=== PATIENT | male | born 1975 | race Caucasian/White ===

== ENCOUNTER 2020-04-15 14:34 | Outpatient (CLI) | payer BC, SELFPAY ==
--- NOTE | 2020-04-15 14:41 | USCV_ITS ---
Audie Estes Age: 44 Gender: M : 1975 Exam Date: 04/15/2020 14:55 Ordering Phys: Nataliya Harrison MD Technologist: Kirstie Estes Exam Location: [facility] Indication: SYNCOPE BP: 121 / 61 HR: 69 Rhythm: Sinus Technical Quality: Adequate MEASUREMENTS (Male / Female) Normal Values 2D ECHO LV Diastolic Diameter PLAX 4.2 cm 4.2 - 5.9 / 3.9 - 5.3 cm LV Systolic Diameter PLAX 3.0 cm LV Chamber Size 3.4 cm IVS Diastolic Thickness 0.9 cm 0.6 - 1.0 / 0.6 - 0.9 cm IVS Systolic Thickness 1.0 cm LVPW Diastolic Thickness 1.5 cm 0.6 - 1.0 / 0.6 - 0.9 cm LVPW Systolic Thickness 2.2 cm RV Chamber Size 3.1 cm LVOT Diameter 2.0 cm LV Ejection Fraction 2D Teich 57.2 % LV Ejection Fraction MOD 2C 57.5 % LV Ejection Fraction 2C AL 57.6 % LA Diameter 3.1 cm LA Width 2.8 cm LA Height 4.4 cm RA Width 2.8 cm RA Height 3.7 cm Aorta at Sinotubular Diameter 2.2 cm M-MODE LV Diastolic Diameter MM 4.1 cm 4.2 - 5.9 / 3.9 - 5.3 cm LV Systolic Diameter MM 2.4 cm LV Ejection Fraction MM Teich 71.6 % IVS Diastolic Thickness MM 0.8 cm 0.6 - 1.0 / 0.6 - 0.9 cm IVS Systolic Thickness MM 1.2 cm LVPW Diastolic Thickness MM 1.2 cm 0.6 - 1.0 / 0.6 - 0.9 cm LVPW Systolic Thickness MM 1.4 cm Aortic Annulus Diameter 3.5 cm LA Ao Ratio MM 1.0 MV E Point Septal Separation 0.5 cm DOPPLER AV Peak Velocity 131.0 cm/s LVOT Peak Velocity 124.0 cm/s AV Area Cont Eq vti 2.7 cm squared AV Area Cont Eq pk 3.0 cm squared MV Area PHT 3.3 cm squared Mitral E to A Ratio 1.6 MV E' Velocity 44.0 cm/s Mitral E to MV E' Ratio 4.4 Mitral E to LV E' Lateral Ratio 3.9 Mitral E to LV E' Septal Ratio 5.0 TR Peak Velocity 242.0 cm/s TR Peak Gradient 23.4 mmHg TV Peak E Velocity 86.0 cm/s Right Atrial Pressure 3.0 mmHg Pulmonary Artery Systolic Pressu 26.4 mmHg PV Peak Velocity 92.0 cm/s RV Acceleration Time 0.2 s RV Ejection Time 0.4 s RV AcT/ET 0.6 FINDINGS Left Ventricle Normal left ventricular size, systolic function and wall thickness, with no regional wall motion abnormalities. Left ventricular ejection fraction is estimated at 60 %. Normal diastolic function. Right Ventricle Normal right ventricular size and systolic function. Right ventricular systolic pressure 26.4 mmHg. Right Atrium Normal right atrial size. Left Atrium Normal left atrial size. Mitral Valve Structurally normal mitral valve. No mitral valve stenosis. Trace mitral valve regurgitation. Aortic Valve Structurally normal trileaflet aortic valve. No aortic valve stenosis. No aortic valve regurgitation. Tricuspid Valve Structurally normal tricuspid valve. Trace tricuspid valve regurgitation. Pulmonic Valve Pulmonic valve not well visualized. Pericardium No pericardial effusion. Aorta Normal size aortic root and proximal ascending aorta. CONCLUSIONS 1. Normal left ventricular size, systolic function and wall thickness, with no regional wall motion abnormalities. Left ventricular ejection fraction is estimated at 60 %. Normal diastolic function. 2. Normal right ventricular size and systolic function. 3. No significant valvular abnormalities. 4. Normal pulmonary artery pressure. 5. No prior similar studies to compare. Elis Riley MD (Electronically Signed) Final Date: 18 April 2020 19:26 S
== END 2020-04-15 14:35 | disposition home or self-care (01) ==
PROVIDERS: PCP Internal Medicine; Visit Provider Internal Medicine
DX: R55 Syncope and collapse (principal)
CPT/HCPCS: 93306

== ENCOUNTER 2022-03-15 16:04 | Outpatient (CLI) | payer BC, SELFPAY ==
--- NOTE | 2022-03-15 16:14 | XR_ITS ---
WS: [id number] Right elbow, 3 views, 03/15/2022 Clinical Data: ELBOW PAIN, RIGHT Comparison: None. Findings: No fractures or dislocations are seen. The radial head is normal. The soft tissues are unremarkable. XR/XR elbow RT min 3V* [id number] Impression: Negative right elbow.
== END 2022-03-15 16:05 | disposition home or self-care (01) ==
LOC: RAD 16:08
PROVIDERS: PCP Internal Medicine; Visit Provider Nurse Practitioner Family
DX: M25.521 Pain in right elbow (principal)
CPT/HCPCS: 73080

== ENCOUNTER → 2022-06-12 14:18 | Outpatient (BNVA) | payer BC, SELFPAY | PROVIDERS: PCP Family Medicine; Visit Provider Family Medicine | DX: R53.82 Chronic fatigue, unspecified (principal); R51.9 Headache, unspecified; G89.29 Other chronic pain; R55 Syncope and collapse; Z76.89 Persons encountering health services in other specified circumstances | CPT/HCPCS: 80053; 80061; 83036; 84403; 84439; 84443; 85025; 85651; 86140; G0103 ==

== ENCOUNTER 2022-08-22 14:34 | Outpatient (CLI) | payer BC, SELFPAY ==
--- NOTE | 2022-08-22 15:30 | CT_ITS ---
WS: [id number] CTA HEAD AND NECK TECHNIQUE: Contrast enhanced CTA of the head and neck with coronal and sagittal reformatted images an d maximum intensity projection (MIP) images. NASCET criteria utilized. CLINICAL INFORMATION: Dizziness, Pre-syncope, chronic migraine COMPARISON: 2019 DLP: 1236.[address] scans at [facility] use at least one of these dose optimization techniques: automated e xposure control; mA and/or kV adjustment per patient size (includes targeted exams where dose is matc hed to clinical indication); or iterative reconstruction. FINDINGS: No evidence of intracranial hemorrhage or mass effect. Ventricular system and basal cistern s are patent. No hydrocephalus. Paranasal sinuses and mastoid air cells well aerated. Normal posterio r nasopharynx. RIGHT: RIGHT common carotid artery is patent. No significant RIGHT ICA stenosis. RIGHT ICA is patent to the skull base. LEFT: LEFT common carotid artery is patent. No significant LEFT ICA stenosis. LEFT ICA is patent to t he skull base. Tortuous LEFT cervical ICA at the skull base. Codominant and patent vertebral arteries bilaterally. Vertebral arteries are patent to the basilar ju nction. Normal vascularity to the [employer] territory bilaterally. Tortuous cavernous carotid arteries. Pat ent anterior communicating artery. Small LEFT A1 segment. Normal vascularity to the ELIEZER and MCA lizette tories bilaterally. No evidence of proximal flow limiting stenosis or aneurysm. Thyroid gland appears normal. CT/CT angio headneck* [id number] IMPRESSION: 1. No evidence of intracranial hemorrhage or mass effect. 2. No significant ICA stenosis bilaterally. 3. Codominant and patent vertebral arteries bilaterally. 4. Normal intracranial CTA. No evidence of proximal flow limiting stenosis or aneurysm. 5. No other suspicious findings.
[2022-08-22] MEDS: iohexol 350 mg/mL 500 mL Btl (per mL) IV (15:53)
== END 2022-08-22 14:35 | disposition home or self-care (01) ==
PROVIDERS: PCP Family Medicine; Visit Provider Family Medicine
DX: R55 Syncope and collapse (principal); G43.909 Migraine, unspecified, not intractable, without status migrainosus; G89.29 Other chronic pain; R42 Dizziness and giddiness
CPT/HCPCS: 70496; 70498; Q9967

== ENCOUNTER → 2023-09-17 15:56 | Outpatient (BNVA) | payer BC, SELFPAY | PROVIDERS: PCP Family Medicine; Visit Provider Family Medicine | DX: R53.82 Chronic fatigue, unspecified (principal); R27.8 Other lack of coordination; R55 Syncope and collapse; R51.9 Headache, unspecified; G89.29 Other chronic pain | CPT/HCPCS: 36415; 80053; 80061; 82306; 82542; 82785; 84207; 84590; 84591; 86001; 86003; 86008; 86618; 86666; 86757 ==

== ENCOUNTER 2024-02-21 07:19 | Outpatient (RCR) | payer BC, SELFPAY | END 2024-03-17 23:59 | disposition home or self-care (01) | LOC: SPT 07:19 | PROVIDERS: Visit Provider Nurse Practitioner Family | DX: R42 Dizziness and giddiness (principal) | CPT/HCPCS: 95992; 97110; 97112; 97161 ==

== ENCOUNTER 2024-07-31 07:51 | Outpatient (CLI) | payer BC, SELFPAY ==
--- NOTE | 2024-07-31 08:00 | MR_ITS ---
WS: [id number] MR CERVICAL SPINE WO/W COMPARISON: None. HISTORY: R55 - Syncope and collapse TECHNIQUE: Sagittal T1, T2 and T2 inversion recovery; axial T2, T2 gradient and fiesta. Post gadolinium imaging with fat saturation technique. FINDINGS:Straightening of the normal cervical lordosis. No high grade central canal narrowing. Cord signal is normal. No abnormal gadolinium enhancement. C2-3: Mild facet arthropathy. C3-4: Mild facet arthropathy. Mild LEFT bony foraminal narrowing. C4-5: Mild facet arthropathy. Mild LEFT bony foraminal narrowing. Spinal canal is patent. C5-6: Moderate facet arthropathy. Spinal canal is patent. C6-7: Central disc osteophyte protrusion. Mild central canal stenosis. Slight indentation of the cervical cord. Mild LEFT bony foraminal narrowing. Moderate facet arthropathy. C7-T1: Spinal canal and foramen are patent. MR/MR cervical spine wo/w [id number] IMPRESSION: 1. Straightening of the normal cervical lordosis. No high-grade central canal narrowing. 2. Cord signal is normal. No abnormal gadolinium enhancement. 3. Central disc osteophyte protrusion C6-7 with indentation of the cervical co rd. Mild central canal stenosis. 4. Mild LEFT C6-7 bony foraminal narrowing.
--- NOTE | 2024-07-31 08:45 | MR_ITS ---
WS: [id number] MRI HEAD WITH CONTRAST TECHNIQUE: Sagittal T1, T2 axial, T2 axial FLAIR, axial susceptibility weighted imaging, and coronal T2 images were obtained. Pre and post-T1 axial and post T1 coronal images. CLINICAL INFORMATION: R51.9 - Headache, unspecified COMPARISON: MRI 2019 FINDINGS: There are a few small foci of T2 signal abnormality in the RIGHT frontal white matter unchanged since 2019. No new suspicious intracranial signal abnormalities. Normal vascular flow voids at the skull base. No extra-axial fluid collections. No evidence of mass or mass effect. Mild mucosal thickening paranasal sinuses. Mastoid air cells are well aerated. Normal posterior nasopharynx. No hemosiderin on the susceptibility weighted images. Normal optic chiasm and pituitary infundibulum. Temporal lobes and hippocampal formations are normal in appearance. No abnormal gadolinium enhancement. Normal dural venous sinuses.Stable incidental small retrocerebellar arachnoid cyst MR/MR head wo/w con [id number] IMPRESSION: 1. A few small foci of T2 hyperintensity in the RIGHT frontal white matter unc hanged. 2. No new suspicious intracranial signal normalities. 3. No hemosiderin. 4. No abnormal gadolinium enhancement. 5. Stable incidental retrocerebellar arachnoid cyst measuring 3.5 x 1.2 cm
[2024-07-31] MEDS: gadobenate dimeglumine 20 mL vial 18 ML IV (09:18)
== END 2024-07-31 07:52 | disposition home or self-care (01) ==
LOC: RAD 07:52
PROVIDERS: PCP Nurse Practitioner Family; Visit Provider Psychiatry & Neurology Neurology
DX: R55 Syncope and collapse (principal); R27.8 Other lack of coordination; G89.29 Other chronic pain; R51.9 Headache, unspecified; R53.82 Chronic fatigue, unspecified; G93.0 Cerebral cysts; J34.89 Other specified disorders of nose and nasal sinuses; R93.7 Abnormal findings on diagnostic imaging of other parts of musculoskeletal system; M25.78 Osteophyte, vertebrae; M50.223 Other cervical disc displacement at C6-C7 level; M48.02 Spinal stenosis, cervical region; M47.892 Other spondylosis, cervical region
CPT/HCPCS: 70553; 72156